=== PATIENT | female | born 2000 | race Two or more races ===

== ENCOUNTER 2021-05-16 16:41 | Emergency (ER) | payer OTHER ==
[~2021-05-16] VITALS: Ht 162.6 cm; Wt 63.5 kg
== END 2021-05-17 00:47 | disposition home or self-care (01) ==
LOC: ER 16:41
DX: G89.11 Acute pain due to trauma (principal); V89.2XXA Person injured in unspecified motor-vehicle accident, traffic, initial encounter; Z3A.28 28 weeks gestation of pregnancy; V49.9XXA Car occupant (driver) (passenger) injured in unspecified traffic accident, initial encounter; Y93.89 Activity, other specified; Y92.413 State road as the place of occurrence of the external cause; Z03.818 Encounter for observation for suspected exposure to other biological agents ruled out

== ENCOUNTER 2021-07-30 13:15 | Inpatient (IN) | payer OTHER ==
[~2021-07-30] VITALS: Ht 162.6 cm; Wt 65.8 kg
[2021-08-02] MEDS ORDERED: IRON236 MG PO (06:31)
[2021-08-02] MEDS ORDERED: PRENATAL TABLE1 EAC4 PO (06:31)
== END 2021-08-05 13:24 | disposition home or self-care (01) | DRG 788 ==
LOC: LDR 08-02 05:35 → OB/GYN 08-02 19:31
PROVIDERS: ADMIT Specialist; ATTEND Specialist
PROC: 4A1HXCZ Monitoring of Products of Conception, Cardiac Rate, External Approach (ICD-10-PCS; 2021-08-02)
PROC: 10D00Z1 Extraction of Products of Conception, Low, Open Approach (ICD-10-PCS; principal; 2021-08-02 16:00)
DX: O62.0 Primary inadequate contractions (principal); Z3A.39 39 weeks gestation of pregnancy; Z37.0 Single live birth; Z20.822 Contact with and (suspected) exposure to COVID-19